=== PATIENT | male | born 2000 | race Caucasian/White ===

== ENCOUNTER 2025-10-11 12:22 | Emergency (ER) | payer BC, SELFPAY ==
[2025-10-11 12:37] VITALS: BP 165/92
[2025-10-11 13:53] VITALS: BMI 41.9
[2025-10-11 14:13] LABS: Hematocrit 45.3 % (39.0-52.0); Hemoglobin 15.9 g/dL (13.0-18.0); Mean Corp Hgb Conc. 35.1 g/dL (33.0-37.0); Mean Corpuscular Volume 83.0 fL (80.0-94.0); Nucleated Red Blood Cells % 0 % (-); Platelet Count 205 10^3/uL (130-400); Red Cell Dist. Width 11.9 % (11.5-14.5)
[2025-10-11 14:26] LABS: ALT (SGPT) 45 U/L (0-50); AST (SGOT) 29 U/L (17-59); Albumin 5.0 g/dl (3.5-5.0); Alkaline Phosphatase 61 U/L (38-126); Blood Urea Nitrogen 19 mg/dl (9-20); Calcium 9.8 mg/dl (8.4-10.2); Carbon Dioxide 27 mmol/L (22-30); Chloride 104 mmol/L (98-107); Estimated Creatinine Clearance > 125 ml/min; Glucose 109 mg/dl (70-99); Potassium 4.1 mmol/L (3.5-5.1); Sodium 138 mmol/L (135-145); Total Protein 7.8 g/dl (6.3-8.2); eGFR > 60.00
[2025-10-11 15:44] LABS: Lipase 55 U/L (23-300)
[2025-10-11] MEDS: NSS 500 IV (15:45)
[2025-10-11 15:47] VITALS: BP 137/69
[2025-10-11 16:00] VITALS: BP 129/56
[2025-10-11 17:00] VITALS: BP 129/61
--- NOTE | 2025-10-11 18:24 | ED.GENMED ---
History of Present Illness
General
Chief Complaint: Bowel Problem
Source: patient
Exam Limitations: none
Time Seen by Provider: 10/11/25 14:41
History of Present Illness
History of Present Illness:
Acute abdominal pain this morning. Associate with diaphoresis and nausea. Symptoms have mostly resolved on ER arrival. Slightly loose stool. No blood or mucus. Patient was in [place] months ago and thought he might have a Salmonella infection at
that time although never documented
Past History
Past History
ED Past Medical History: None
ED Past Surgical History: Appendectomy and Orthopedic
Review of Systems
Review of Systems
All Other Systems: Not applicable
Constitutional: Denies fever or chills
ABD/GI: Denies bloody stools or black stools
Phy Exam
Physical Exam
Physical Exam:
GENERAL: Alert and oriented in no apparent distress
EYE: Orbits normal.
NECK: Supple, no significant adenopathy.
ENT: Pharynx without erythema
CARDIAC: Regular rate and rhythm without any obvious murmurs.
LUNGS: Clear breath sounds,normal
ABDOMEN: Soft, no distention. Bowel sounds present. Very minimal nonlocalizing suprapubic pubic tenderness
NEUROLOGICAL: Alert and oriented , grossly non-focal
SKIN: Warm and dry, no rash or lesion, no discoloration, skin intact.
MUSCULOSKELETAL: No edema,no deformity.Good color
PSYCH: Normal and appropriate interaction.
Course
Orders/Labs/Results
Orders:
Orders
10/11/25 14:03
CMP [Comprehensive Metabolic Panel] Urgent
Complete Blood Count/With Diff Urgent
Lipase Urgent
Comment: ADD ON
10/11/25 15:01
Add On- LAB Urgent
Tests Added?: lipase
10/11/25 15:02
CT Abd/Pel (IV only)-DH only Urgent
Comment:
Reason For Exam: Lower abdominal pain
IV Insert/Care/Rem.- Treatment PRN
0.9% Sodium Chloride 500 ml [Nss] 500 ml IV BOLUS
Abnormal Lab Results
10/11/25
14:03
MPV 10.7 H fL
(7.4-10.4)
Absolute Neuts (auto) 8.4 H 10^3/uL
(1.4-6.5)
Absolute Lymphs (auto) 1.0 L 10^3/uL
(1.2-3.4)
Neutrophils % 85.2 H %
(42.2-75.2)
Lymphocytes % 9.7 L %
(20.5-51.1)
Glucose 109 H mg/dl
(70-99)
10/11/25 14:03
10/11/25 14:03
Vital Signs
Initial and Last Documented VS:
Initial Vital Signs
Temp Pulse Resp BP Pulse Ox
97.8 F 55 16 165/92 98
10/11/25 12:37 10/11/25 12:37 10/11/25 12:37 10/11/25 12:37 10/11/25 12:37
Last Documented Vital Signs
Temp Pulse Resp BP Pulse Ox
97.8 F 55 16 129/61 100
10/11/25 12:37 10/11/25 12:37 10/11/25 12:37 10/11/25 17:00 10/11/25 18:25
*Radiology
Radiology exam reviewed: radiology read reviewed (Negative)
*Pulse Oximetry
SaO2: 100
Oxygen Mode of Delivery: Room air
Patient hypoxic: no
*Critical Care Note
Total Time (30-74mins, 75-104mins- exclusive of procedures): Not Applicable
Update Note
Update Note:
Patient has remained stable and nontoxic. No distress. Significantly improved symptoms. Negative CT scan. Discharged to follow-up.
ED Attending Note
-
Portions of this chart may have been created with voice recognition software.� Occasional wrong word or��sound alike� substitutions may have occurred due to the inherent limitations of voice recognition software.
Discharge Plan
Departure
Patient Disposition: Home (Routine Discharge)
Date of Disposition: 10/11/25
Time of Disposition: 18:24
Patient with high blood pressure during this ER visit?: Yes
Discharge Problem:
Acute abdominal pain
Instructions: Abdominal Pain, BLOOD PRESSURE
Prescriptions:
No Action
oxycodone-acetaminophen 5 MG/325 MG tablet
1 tab PO Q4HPRN PRN (Reason: Severe pain) Qty: 10 0RF
ondansetron HCl 4 MG tablet
4 mg PO TIDPRN PRN (Reason: nausea and vomiting) Qty: 15 0RF
Referrals:
UNKNOWN - PT DOES,NOT KNOW [Family Provider]
Activity Restrictions/Additional Instructions:
Light diet for the next few days
Return with recurring pain fever vomiting or if symptoms have not totally resolved in 1 to 2 days
Interventions
Interventions:
*General Assessment Last Done: 10/11/25 13:53
*Neglect/Abuse Screening Last Done: 10/11/25 12:37
*ED COVID-19 Vaccine History Last Done: 10/11/25 13:53
*ED Influenza Vaccine History Last Done: 10/11/25 13:53
[facility] Fall Risk Assessment Tool Last Done: 10/11/25 13:53
*Risk Screen - Suicide (C-SSRS) Last Done: 10/11/25 12:37
PN-Tnxuhy-Ttzvaocgro Assessment Last Done: 10/11/25 13:53
Discharge Date and Time
Print Language: AMERICAN
== END 2025-10-11 18:40 | disposition home or self-care (01) ==
LOC: EMR 12:22
PROVIDERS: Physician Assistant; EMERGENCY PHYSICIAN Emergency Medicine
DX: R10.9 Unspecified abdominal pain (principal); R11.2 Nausea with vomiting, unspecified
CPT/HCPCS: 99285; 96360; 96361; 74177; 80053; 83690; 85025; Q9967